=== PATIENT | male | born 1930 | race Caucasian/White ===

== ENCOUNTER → 2016-11-08 | Outpatient (CLI) | payer MEDICARE ==
[~2016-11-08] MED LIST: ALPHA LIPOIC A600 MG PO; ASPI-COR81 M1 PO; BUTRANS5 MCG/HR TD; CLARITIN10 MG PO; CO ENZYME Q-1050 MG PO; CRESTOR10 M1 PO; CRESTOR10 MG PO; DOXAZOSIN4 MG PO; DOXYCYCLINE MO100 M1 PO; FIBERCON625 MG PO; FOLIC ACID1 MG PO; GABAPENTIN TAB600 MG PO; GLUCOSAMINE & C1 CA2 PO; IMDUR30 MG PO; LEVOFLOXACIN500 MG PO; LOPRESSOR25 MG PO; LYRICA50 M1 PO; MEDROL DOSEPAK4 MG PO; METOPROLOL SUCC25 M2 PO; MULTIPLE VITAMI1 CAP PO; NATURE'S BLEND F1 MG PO; NEURONTIN300 MG PO; OMEGA 31000 MG PO; OMEPRAZOLE20 MG PO; PLAVIX75 MG PO; PROTONIX TR40 M1 PO; SAW PALMETTO160 M1 PO; VICODIN 500 MG-1 TAB PO; VITAMIN B COMPL1 CAP PO; VITAMIN C1000 MG PO; VITAMIN D5000 I3 PO; ZANTAC 300300 MG PO; ZITHROMAX Z PA250 MG PO; [UNRECOGNIZED DRUG - CODE] PO
== END | disposition home or self-care (01) ==
LOC: NM 10:00
DX: M79.2 Neuralgia and neuritis, unspecified (principal); M54.5 Low back pain; M25.551 Pain in right hip

== ENCOUNTER 2017-03-30 10:48 | Emergency (ER) | payer MEDICARE ==
[~2017-03-30] VITALS: Ht 177.8 cm; Wt 88.9 kg
[2017-03-30 11:01] VITALS: BP 122/70
[2017-03-30] MEDS ORDERED: NORCO 10-325 T1 EACH PO (13:11)
== END 2017-03-30 13:49 | disposition home or self-care (01) ==
LOC: ED 10:48
DX: S22.32XA Fracture of one rib, left side, initial encounter for closed fracture (principal); I25.10 Atherosclerotic heart disease of native coronary artery without angina pectoris; Z79.82 Long term (current) use of aspirin; Z79.899 Other long term (current) drug therapy; W55.22XA Struck by cow, initial encounter; Y93.89 Activity, other specified; Y92.89 Other specified places as the place of occurrence of the external cause; Y99.8 Other external cause status

== ENCOUNTER 2017-04-01 21:53 | Emergency (ER) | payer MEDICARE ==
[~2017-04-01] VITALS: Ht 177.8 cm; Wt 88.9 kg
[~2017-04-01 21:53] MED LIST changes: +NORCO 10-325 T1 EACH PO
[2017-04-01 21:57] VITALS: BP 146/68
[2017-04-01] MEDS ORDERED: LEVOFLOXACIN500 MG PO (23:39)
== END 2017-04-02 00:25 | disposition home or self-care (01) ==
LOC: ED 21:53
DX: J90 Pleural effusion, not elsewhere classified (principal); K59.00 Constipation, unspecified; I25.10 Atherosclerotic heart disease of native coronary artery without angina pectoris; Z79.899 Other long term (current) drug therapy; Z79.82 Long term (current) use of aspirin

== ENCOUNTER 2017-04-22 10:36 | Inpatient (IN) | payer MEDICARE ==
[2017-04-22] VITALS (8 sets, daily range): BP systolic 125–146; BP diastolic 62–69
[~2017-04-22] VITALS: Ht 177.8 cm; Wt 85.9 kg
[~2017-04-22 10:36] MED LIST changes: -VITAMIN D5000 I3 PO; +VITAMIN D5000 UNIT PO
[2017-04-22 10:50] LABS: BASO # 0.1 10*3/uL (0.0-0.1); BASO % 1.1 % (0.0-1.0); EOS # 0.2 10*3/uL (0.0-0.4); EOS % 3.6 % (1.0-4.0); HEMATOCRIT 34.2 % (42.0-52.0); HEMOGLOBIN 11.2 g/dl (14.0-18.0); MEAN CELL VOLUME 103.3 fl (80.0-94.0); MEAN CORPUSCULAR HGB 33.8 pg (27.0-31.0); MEAN CORPUSCULAR HGB CONC 32.7 g/dl (33.0-37.0); MONO # 0.4 10*3/uL (0.1-1.0); MONO % 8.9 % (3.0-9.0); PLATELET COUNT AUTOMATED 187 10*3/uL (130-400); RED BLOOD COUNT 3.31 10*6/uL (4.50-5.90); RED CELL DISTRI WIDTH 13.5 % (0-14.5); WHITE BLOOD COUNT 4.7 10*3/uL (4.8-10.8)
--- NOTE | 2017-04-22 11:00 | NUR ---
PATIENT DOES HAVE A SIGNIFICANT CARDIAC HX INCLUDING BYPASS. MELCHOR ROSS
[2017-04-22 11:08] LABS: ALKALINE PHOSPHATASE 123 U/L (45-117); BUN 22 mg/dl (7-24); CHLORIDE 110 mmol/L (98-107); CREATININE 1.26 mg/dL (0.70-1.30); MAGNESIUM 2.1 mg/dL (1.5-2.1); SGOT/AST 17 IU/L (3-35); SGPT/ALT 20 U/L (12-78); SODIUM 141 mmol/L (136-145); TOTAL PROTEIN 7.4 gm/dL (6.4-8.2)
--- NOTE | 2017-04-22 11:09 | NUR ---
DR. LUCIA MADE AWARE OF THE PATIENT'S ELEVATED TROPONIN. MELCHOR ROSS
[2017-04-22 11:10] LABS: TROPONIN I 0.096 ng/ml (<0.045)
--- NOTE | 2017-04-22 11:17 | NUR ---
PATIENT DENIES ANY SHORTNESS OF BREATH, STATES THAT HE WAS SHORT OF BREATH EARLIER, STATES THAT HE ALSO HAS HAD RELIEF OF THE CHEST PRESSURE THAT WAS MIDSTERNAL AT THIS TIME, PATIENT IS RESTING IN BED, DR. LUCIA PRESENT IN THE ROOM WITH THE PATIENT, CONTINUING TO MONITOR THE PATIENT. MELCHOR ROSS
[2017-04-22 11:27] LABS: ACT PARTIAL THROMBO TIME 27.1 SECONDS (20.8-31.5); INTERNATIONAL NORM RATIO 1.1 (2.0-3.5)
--- NOTE | 2017-04-22 11:35 | NUR ---
PATIENT STATES THAT HE CONTINUES TO HAVE PAIN IN THE LEFT RIBS FROM HIS INJURY 3 WEEKS AGO. MELCHOR ROSS
--- NOTE | 2017-04-22 12:05 | NUR ---
PATIENT IS ALERT AND ORIENTED X3, SKIN IS PINK, WARM, AND DRY, REPSIRATIONS ARE EASY AND NONLABORED, PATIENT STATES THAT HE DOES HAVE MILD PAIN IN THE LEFT SIDE, CALL LIGHT IN REACH OF THE PATIENT, CONTINUING TO MONITOR THE PATIENT. VANDANARN
--- NOTE | 2017-04-22 12:07 | NUR ---
PATIENT STATES THAT IT IS HIS RIBS THAT ARE HURTING DENIES ANY CHEST PAIN. MELCHOR ROSS
--- NOTE | 2017-04-22 13:13 | NUR ---
PATIENT TAKEN TO THE FLOOR AND PALCED IN ROOM 416-1 IN THE BED, CARE TRANSFERRED TO REGISTERED NURSE NATTY SCHWARTZ. MELCHOR ROSS
[2017-04-22] MEDS ORDERED: TOPAMAX100 M1 PO (13:34)
--- NOTE | 2017-04-22 13:45 | NUR ---
A 86, admitted to 5E, under the services of NADER Pacheco DO with a diagnosis of CHEST PAIN. Chief complaint is CHEST PAIN. Patient arrived via ambulatory from ER. Monitor applied. Initial assessment completed. Vital signs taken and recorded. NADER PACHECO DO notified of admission to the unit. Orders received. See assessment for past medical history, medications and allergies. Patient and/or family oriented to unit. [facility] visitation policy reviewed. Clothing/patient valuable form completed. NATTY SCHWARTZ
--- NOTE | 2017-04-22 20:19 | NUR ---
DR. DE SOUZA & DR. DELEON CONTACTED WITH TROPONIN LEVEL AND PATIENT C/O OF PRESSURE IN THE MIDSTERNAL REGION. SEE NEW ORDERS.
--- NOTE | 2017-04-22 22:20 | NUR ---
NOTIFIED OF CRITICAL LAB VALUE. NO NEW ORDERS.
[2017-04-22 22:38] LABS: CKMB 1.2 ng/ml (0.5-3.6)
[2017-04-22 22:41] LABS: TROPONIN I 0.084 ng/ml (<0.045)
--- NOTE | 2017-04-22 22:48 | NUR ---
MORPHINE GIVEN FOR CHEST DISCOMFORT, WILL MONITOR.
--- NOTE | 2017-04-22 23:30 | NUR ---
MORPHINE EFFECTIVE PAIN HAS NO C/O CHEST PAIN.
[2017-04-23] VITALS: BP 130/52
--- NOTE | 2017-04-23 01:30 | NUR ---
NOTIFIED OF CRITICAL LAB VALUE. NO NEW ORDERS.
[2017-04-23 06:26] LABS: BASO # 0.1 10*3/uL (0.0-0.1); BASO % 1.3 % (0.0-1.0); EOS # 0.2 10*3/uL (0.0-0.4); EOS % 3.6 % (1.0-4.0); HEMATOCRIT 32.3 % (42.0-52.0); HEMOGLOBIN 10.7 g/dl (14.0-18.0); LYMPH # 1.7 10*3/uL (1.3-4.4); LYMPH % 35.4 % (27.0-41.0); MEAN CELL VOLUME 102.5 fl (80.0-94.0); MEAN CORPUSCULAR HGB CONC 33.1 g/dl (33.0-37.0); MEAN PLATELET VOLUME 10.1 fl (9.6-12.3); MONO # 0.5 10*3/uL (0.1-1.0); MONO % 9.9 % (3.0-9.0); NEUT # 2.4 10*3/uL (2.3-7.9); NEUT % 49.6 % (47.0-73.0); PLATELET COUNT AUTOMATED 181 10*3/uL (130-400); RED BLOOD COUNT 3.15 10*6/uL (4.50-5.90); RED CELL DISTRI WIDTH 13.6 % (0-14.5); WHITE BLOOD COUNT 4.8 10*3/uL (4.8-10.8)
[2017-04-23 06:53] LABS: ALBUMIN 3.5 gm/dl (3.1-4.5); ALKALINE PHOSPHATASE 107 U/L (45-117); BUN 21 mg/dl (7-24); CHLORIDE 111 mmol/L (98-107); CHOLESTEROL 118 mg/dL (<200); CREATININE 1.13 mg/dL (0.70-1.30); MAGNESIUM 2.1 mg/dL (1.5-2.1); SGOT/AST 14 IU/L (3-35); SGPT/ALT 16 U/L (12-78); SODIUM 142 mmol/L (136-145); TOTAL PROTEIN 6.5 gm/dL (6.4-8.2); TRIGLYCERIDES 150 mg/dl (<150); VLDL CHOLESTEROL 30 mg/dL (6-40)
--- NOTE | 2017-04-23 06:56 | NUR ---
MORPINE GIVEN FOR SHARP CHEST PAIN. OXYGEN APPLIED. WILL MONITOR.
[2017-04-23 06:58] LABS: FREE T4 1.02 ng/dl (0.76-1.46); HDL CHOLESTEROL 32 mg/dl (40-60); LDL CHOLESTEROL 56 mg/dL (9-159)
--- NOTE | 2017-04-23 07:15 | NUR ---
CHEST PAIN RESOLVED, MORPHINE EFFECTIVE PATIENT SATISFIED.
[2017-04-23 08:00] VITALS: BP 119/62
[2017-04-23 08:06] LABS: VITAMIN D, 25-HYDROXY 48.5 ng/mL (30-100)
--- NOTE | 2017-04-23 11:52 | NUR ---
DR SCHWARTZ HERE TO SEE PT
[2017-04-23 12:00] VITALS: BP 122/72
--- NOTE | 2017-04-23 14:42 | NUR ---
REPORT CALLED TO [place] , SPOKE WITH MIN
--- NOTE | 2017-04-23 14:44 | NUR ---
DR SCHWARTZ NOTIFIED OF PT AND PT REFUSING LOVENOX
--- NOTE | 2017-04-23 15:53 | NUR ---
Discharge instructions reviewed with patient/family. Patient receptive and verbalizes understanding. Follow-up care arranged. Written instructions given to patient/family. GAMALIEL KINNEY
== END 2017-04-23 15:53 | disposition short-term general hospital (02) | DRG 303 ==
LOC: ED 10:36 → 5E 11:58 → EDHOLD 11:58 → 5E 12:17
PROVIDERS: Emergency Medicine; Family Medicine; Internal Medicine Cardiovascular Disease; ADMIT Internal Medicine
DX: I25.709 Atherosclerosis of coronary artery bypass graft(s), unspecified, with unspecified angina pectoris (principal); D53.9 Nutritional anemia, unspecified; I10 Essential (primary) hypertension; R74.8 Abnormal levels of other serum enzymes; E78.5 Hyperlipidemia, unspecified; I25.2 Old myocardial infarction; Z87.891 Personal history of nicotine dependence; Z95.5 Presence of coronary angioplasty implant and graft; Z82.49 Family history of ischemic heart disease and other diseases of the circulatory system; Z90.49 Acquired absence of other specified parts of digestive tract; Z79.82 Long term (current) use of aspirin; Z79.899 Other long term (current) drug therapy; Z80.8 Family history of malignant neoplasm of other organs or systems; S22.42XD Multiple fractures of ribs, left side, subsequent encounter for fracture with routine healing; X58.XXXD Exposure to other specified factors, subsequent encounter

== ENCOUNTER 2017-05-31 19:57 | Inpatient (IN) | payer MEDICARE ==
[~2017-05-31] VITALS: Ht 177.8 cm; Wt 88.3 kg
[~2017-05-31 19:57] MED LIST changes: +TOPAMAX100 M1 PO
[2017-05-31 20:13] VITALS: BP 125/84
[2017-05-31 20:47] LABS: BASO # 0.1 10*3/uL (0.0-0.1); BASO % 1.8 % (0.0-1.0); EOS # 0.2 10*3/uL (0.0-0.4); EOS % 2.8 % (1.0-4.0); HEMATOCRIT 34.4 % (42.0-52.0); HEMOGLOBIN 11.8 g/dl (14.0-18.0); LYMPH # 1.6 10*3/uL (1.3-4.4); LYMPH % 28.5 % (27.0-41.0); MEAN CELL VOLUME 99.4 fl (80.0-94.0); MEAN CORPUSCULAR HGB 34.1 pg (27.0-31.0); MEAN CORPUSCULAR HGB CONC 34.3 g/dl (33.0-37.0); MEAN PLATELET VOLUME 9.5 fl (9.6-12.3); MONO # 0.5 10*3/uL (0.1-1.0); NEUT # 3.3 10*3/uL (2.3-7.9); NEUT % 57.5 % (47.0-73.0); PLATELET COUNT AUTOMATED 189 10*3/uL (130-400); RED BLOOD COUNT 3.46 10*6/uL (4.50-5.90); RED CELL DISTRI WIDTH 13.4 % (0-14.5); WHITE BLOOD COUNT 5.7 10*3/uL (4.8-10.8)
[2017-05-31 20:56] LABS: INTERNATIONAL NORM RATIO 1.1 (2.0-3.5)
[2017-05-31 21:02] LABS: ALBUMIN 3.9 gm/dl (3.1-4.5); ALKALINE PHOSPHATASE 94 U/L (45-117); BUN 16 mg/dl (7-24); CHLORIDE 108 mmol/L (98-107); CREATININE 1.25 mg/dL (0.70-1.30); POTASSIUM 3.5 mmol/L (3.5-5.1); SGOT/AST 9 IU/L (3-35); SGPT/ALT 20 U/L (12-78); SODIUM 140 mmol/L (136-145); TOTAL PROTEIN 7.2 gm/dL (6.4-8.2)
[2017-05-31 22:12] LABS: TROPONIN I 0.154 ng/ml (<0.045)
--- NOTE | 2017-05-31 22:12 | NUR ---
LAB CALLED WITH CRITICAL VALUE OF TROPONIN 0.154. NOTIFIED.
[2017-05-31 22:52] VITALS: BP 111/66
[2017-05-31 23:22] VITALS: BP 137/69
--- NOTE | 2017-06-01 00:11 | NUR ---
DR. DHALIWAL CALLED AT THIS TIME, THIS NURSE STATED THAT DR. Royal MCWILLIAMS PUT IN AN ORDER FOR A CT BRAIN ATTACK. AND THAT THIS ORDER IS SUPPOSED TO BE PAGED OVERHEAD. THIS NURSE REQUESTED THAT THE ORDER BE SWITCHED TO CT HEAD STAT INSTEAD OF BRAIN ATTACK SINCE THE PATIENT HAD FALLEN. DR. DHALIWAL STATED HE WOULD GET THIS ORDER CHANGED.
--- NOTE | 2017-06-01 00:19 | NUR ---
DR. DHALIWAL CALLED BACK AT THIS TIME AND THIS NURSE STATED NOT TO CANCEL THE CT BRAIN ATTACK ORDER BECAUSE THE CONVEYOR WEIGHER OPERATOR ALREADY TOOK THE SCAN. DR. DHALIWAL STATED THAT DR. MCWILLIAMS JUST SWITCHED IT, BUT IT WAS PUT IN SO THAT IT WOULD GET DONE FASTER.
--- NOTE | 2017-06-01 01:09 | NUR ---
A 86, admitted to 4E, under the services of JOSE LUIS Tyson DO with a diagnosis of FRACTURED RIB. Chief complaint is RIB PAIN. Patient arrived via wheel chair from ER. Monitor applied. Initial assessment completed. Vital signs taken and recorded. JOSE LUIS TYSON DO notified of admission to the unit. Orders received. See assessment for past medical history, medications and allergies. Patient and/or family oriented to unit. [facility] IN PATIENT visitation policy reviewed. Clothing/patient valuable form completed. ROSEMARIE REDDING
--- NOTE | 2017-06-01 01:10 | NUR ---
ATTEMPTED TO CONDUCT MED REC WITH PATIENT HOWEVER HE DOES NOT REMEMBER HIS MEDICATIONS AND DOSES. WILL PASS ON MED REC NEEDS TO BE COMPLETED WITH [facility] WHEN THEY OPEN.
--- NOTE | 2017-06-01 02:00 | NUR ---
DR. DHALIWAL NOTIFIED THAT OF TROPONIN LEVEL OF 0.155 AND THAT THE MEDICATIONS WER NOT ABLE TO BE REVIEWED WITH THE PATIENT. MEDICATIONS WERE CONTINUED BASED ON MED REC FROM RECENT ADMISSION.
[2017-06-01 04:24] LABS: BASO # 0.1 10*3/uL (0.0-0.1); BASO % 0.8 % (0.0-1.0); EOS # 0.2 10*3/uL (0.0-0.4); EOS % 3.2 % (1.0-4.0); HEMATOCRIT 34.5 % (42.0-52.0); HEMOGLOBIN 11.5 g/dl (14.0-18.0); LYMPH # 1.6 10*3/uL (1.3-4.4); LYMPH % 26.5 % (27.0-41.0); MEAN CELL VOLUME 100.6 fl (80.0-94.0); MEAN CORPUSCULAR HGB 33.5 pg (27.0-31.0); MEAN CORPUSCULAR HGB CONC 33.3 g/dl (33.0-37.0); MEAN PLATELET VOLUME 9.4 fl (9.6-12.3); MONO # 0.5 10*3/uL (0.1-1.0); MONO % 8.8 % (3.0-9.0); NEUT # 3.6 10*3/uL (2.3-7.9); NEUT % 60.5 % (47.0-73.0); PLATELET COUNT AUTOMATED 181 10*3/uL (130-400); RED BLOOD COUNT 3.43 10*6/uL (4.50-5.90); RED CELL DISTRI WIDTH 13.5 % (0-14.5)
[2017-06-01 04:34] LABS: BUN 17 mg/dl (7-24); CHLORIDE 108 mmol/L (98-107); CREATININE 1.24 mg/dL (0.70-1.30); POTASSIUM 3.7 mmol/L (3.5-5.1); SODIUM 142 mmol/L (136-145)
[2017-06-01 04:35] LABS: PHOSPHOROUS 3.2 mg/dL (2.5-4.9)
--- NOTE | 2017-06-01 04:46 | NUR ---
Dr. julian notified for troponin of 0.166.
--- NOTE | 2017-06-01 04:58 | NUR ---
SPOKE WITH DR. MCWILLIAMS AT THIS TIME. DR. MCWILLIAMS INQUIRING ABOUT IF PATIENT FOLLOWS WITH CARDIOLOGY. THIS NURSE STATED THAT THE PATIENT FOLLOWS WITH [facility] AND THAT THE LAST TIME HE WAS HERE HE WAS TRANSFERRED FOR THE SAME ELEVATED TROPONINS THAT HE IS HAVING NOW. THIS NURSE STATED IN A PREVIOUS NOTE BY DR. SCHWARTZ THAT THE PATIENTS FAMILY REQUESTED IF ANY CARDIOLOY WORK UP WAS NEEDED THEY WOULD LIKE TO GO BACK TO [facility]. THE PATIENT IS AGREEABLE TO SEE A MODEL HOME SALES GREETER HERE AND IF NEEDED HE CAN BE TRANSFERRED TO [facility]
--- NOTE | 2017-06-01 05:03 | NUR ---
SPOKE WITH DR. DHALIWAL AT THIS TIME, THIS NURSE INQUIRED ABOUT IF WE COULD GET AN ORDER TO OBTAIN MEDICAL RECORDS FROM THE LAST TIME THE PATIENT WAS TRANSFERRED TO [facility] SO THE STUDIO ASSISTANT HERE COULD REVIEW. DR. DHALIWAL STATED THAT HE WOULD PUT THE ORDER IN
--- NOTE | 2017-06-01 06:39 | NUR ---
DR SEPULVEDA WAS CONSULTED REGARDING THE RISING TROPONIN LEVEL.
[2017-06-01 08:00] VITALS: BP 104/43
--- NOTE | 2017-06-01 08:45 | NUR ---
CRITICAL LAB REPORTED TO
--- NOTE | 2017-06-01 09:15 | NUR ---
case management attempted to visit with patient, patient having testing done at this time, will see at a later time
--- NOTE | 2017-06-01 10:14 | NUR ---
Nursing reports that patient to be transferred to [facility] this am. OT evaluation not appropriate at this time. Radhika Tipton OTR/L
[2017-06-01 12:00] VITALS: BP 118/63
--- NOTE | 2017-06-01 12:43 | NUR ---
PHYSICAL THERAPY Possible transfers, not medically appropiate for PT this date. Thank you for this referral. Rosa M Aldana,PT
[2017-06-01 16:00] VITALS: BP 114/56
--- NOTE | 2017-06-01 16:00 | NUR ---
PATIENT LYING IN BED ALERT AND ORIENTED. PATIENT STATES THAT HE IS WAITING FOR CONFIRMATION TO [place]. VOICES NO COMPLAINTS, WITH PATIENT. IV'S INTACT ONE IN EACH ARM. NO S/S OF DISTRESS.
--- NOTE | 2017-06-01 18:27 | NUR ---
Discharge instructions reviewed with patient/family. Patient receptive and verbalizes understanding. Follow-up care arranged. Written instructions given to patient/family. PATIENT DISCHARGE. 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 TRANSPORTED VIA [facility]. PATIENT ON MONITOR, PACED RHYTHM WITH RBBB. WITH PATIENT AND GOING IN PRIVATE CAR. HOSPITAL WING AND ROOM NUMBER GIVEN TO AMBULANCE STAFF AND . REPORT CALLED TO [facility]. OUT OF FACILITY AT 1755. ANKUR MDOI
== END 2017-06-01 18:27 | disposition short-term general hospital (02) | DRG 184 ==
LOC: ED 19:57 → 4E 22:57 → EDHOLD 22:57 → 4E 23:11
PROVIDERS: Internal Medicine; Nurse Practitioner Family; ADMIT Internal Medicine
DX: S22.42XA Multiple fractures of ribs, left side, initial encounter for closed fracture (principal); I67.82 Cerebral ischemia; E87.8 Other disorders of electrolyte and fluid balance, not elsewhere classified; G62.9 Polyneuropathy, unspecified; D53.9 Nutritional anemia, unspecified; R43.2 Parageusia; I25.10 Atherosclerotic heart disease of native coronary artery without angina pectoris; K21.9 Gastro-esophageal reflux disease without esophagitis; E78.5 Hyperlipidemia, unspecified; G43.909 Migraine, unspecified, not intractable, without status migrainosus; E55.9 Vitamin D deficiency, unspecified; N40.0 Benign prostatic hyperplasia without lower urinary tract symptoms; W18.39XA Other fall on same level, initial encounter; Z95.1 Presence of aortocoronary bypass graft; Z87.01 Personal history of pneumonia (recurrent); Z79.82 Long term (current) use of aspirin; Y93.89 Activity, other specified; Y92.89 Other specified places as the place of occurrence of the external cause; Z90.49 Acquired absence of other specified parts of digestive tract; Z82.49 Family history of ischemic heart disease and other diseases of the circulatory system; Z82.0 Family history of epilepsy and other diseases of the nervous system; Y99.8 Other external cause status; I25.2 Old myocardial infarction

== ENCOUNTER 2018-09-21 12:55 | Emergency (ER) | payer MEDICARE ==
[~2018-09-21] VITALS: Ht 177.8 cm; Wt 89.4 kg
--- NOTE | ~2018-09-21 | EKG ---
[place], [place] ELECTROCARDIOGRAM REPORT NAME: JADON WILSON UNIT #: [id number] ROOM: DOCTOR: EPIPHANY DRAFT REPORT BIRTHDATE: [birth year] [facility] Test Date: 2018-09-21 Test Time: 13:37:52 Pat Name: JADON WILSON Department: Room: Gender: Manager Transfer: PAMELA : [id number] Requested By: DEVAN MARTIN Order Number: [id number] Reading MD: Tommy Flores MD Measurements Intervals [place] Rate: 73 P: MS: 73 QRS: 133 QRSD: 118 T: -7 QT: 416 QTc: 459 Interpretive Statements Atrial-paced complexes Nonspecific intraventricular conduction delay Borderline low voltage, extremity leads Baseline wander in lead(s) V1 Compared to ECG 09/18/2018 10:23:42 ST (T wave) deviation no longer present Electronically Signed On 09-23-2018 7:34:15 PST by Tommy Flores MD CM:EKGRPT:ELECTROCARDIOGRAM REPORT [id number] DEVAN ALEXANDRA DRAFT REPORT DEVAN MARTIN MD
[~2018-09-21 12:55] MED LIST changes: +ELIQUIS5 M1 PO; +SOTALOL80 MG PO
[2018-09-21 13:02] VITALS: BP 137/67
[2018-09-21 13:34] LABS: BASO % 1.1 % (0.0-1.0); EOS # 0.1 10*3/uL (0.0-0.4); HEMATOCRIT 37.4 % (42.0-52.0); HEMOGLOBIN 12.5 g/dl (14.0-18.0); LYMPH % 26.1 % (27.0-41.0); MEAN CELL VOLUME 101.4 fl (80.0-94.0); MEAN CORPUSCULAR HGB 33.9 pg (27.0-31.0); MEAN CORPUSCULAR HGB CONC 33.4 g/dl (33.0-37.0); MEAN PLATELET VOLUME 9.1 fl (9.6-12.3); MONO # 0.7 10*3/uL (0.1-1.0); MONO % 18.4 % (3.0-9.0); NEUT # 1.9 10*3/uL (2.3-7.9); NEUT % 51.1 % (47.0-73.0); PLATELET COUNT AUTOMATED 157 10*3/uL (130-400); RED BLOOD COUNT 3.69 10*6/uL (4.50-5.90); RED CELL DISTRI WIDTH 13.5 % (0-14.5); WHITE BLOOD COUNT 3.6 10*3/uL (4.8-10.8)
[2018-09-21 13:43] LABS: ACT PARTIAL THROMBO TIME 26.5 SECONDS (20.8-31.5); INTERNATIONAL NORM RATIO 1.1 (2.0-3.5)
[2018-09-21 13:44] LABS: BILIRUBIN NEGATIVE (NEGATIVE); BLOOD NEGATIVE (NEGATIVE); CLARITY SL CLOUDY (CLEAR); COLOR YELLOW (YELLOW); GLUCOSE NEGATIVE (NEGATIVE); KETONE TRACE (NEGATIVE); LEUKO ESTERASE NEGATIVE (NEGATIVE); NITRITE NEGATIVE (NEGATIVE); PH 5.5 (5.0-9.0); SPECIFIC GRAVITY 1.015 (1.005-1.030); UROBILINOGEN 0.2 E.U./dl (0.2-1.0)
[2018-09-21 13:57] LABS: BACTERIA 1+; RBC 16-20 rbc/hpf (0-2)
[2018-09-21 14:01] LABS: ALBUMIN 4.4 gm/dl (3.1-4.5); ALKALINE PHOSPHATASE 72 U/L (45-117); BUN 17 mg/dl (7-24); CHLORIDE 103 mmol/L (98-107); CREATININE 1.16 mg/dL (0.70-1.30); LIPASE 130 U/L (73-393); SGOT/AST 27 IU/L (3-35); SGPT/ALT 36 U/L (12-78); SODIUM 138 mmol/L (136-145); TOTAL PROTEIN 7.3 gm/dL (6.4-8.2)
[2018-09-21 14:05] LABS: TROPONIN I 0.223 ng/ml (<0.045)
== END 2018-09-21 16:19 | disposition home or self-care (01) ==
LOC: ED 12:55
PROVIDERS: Emergency Medicine
DX: R10.9 Unspecified abdominal pain (principal); R79.89 Other specified abnormal findings of blood chemistry; R14.0 Abdominal distension (gaseous); R19.7 Diarrhea, unspecified; I25.10 Atherosclerotic heart disease of native coronary artery without angina pectoris; I11.0 Hypertensive heart disease with heart failure; I50.9 Heart failure, unspecified; E78.5 Hyperlipidemia, unspecified; K21.9 Gastro-esophageal reflux disease without esophagitis; I25.2 Old myocardial infarction; G43.909 Migraine, unspecified, not intractable, without status migrainosus; I48.0 Paroxysmal atrial fibrillation; G62.9 Polyneuropathy, unspecified; Z90.49 Acquired absence of other specified parts of digestive tract

== ENCOUNTER 2019-04-17 13:35 | Emergency (ER) | payer MEDICARE ==
--- NOTE | ~2019-04-17 | EKG ---
[place], [place] ELECTROCARDIOGRAM REPORT NAME: MILLI WILSON UNIT #: [id number] ROOM: DOCTOR: NASRIN DRAFT REPORT BIRTHDATE: [birth year] [facility] Test Date: 2019-04-17 Test Time: 13:41:59 Pat Name: milli wilson Department: Patient ID: ELOH- Room: Gender: Cushion Padder: : 1930 Requested By: ROSELYN LUCIA Order Number: [id number] Reading MD: Measurements Intervals [place] Rate: 75 P: VA: 117 QRS: 140 QRSD: 125 T: 20 QT: 428 QTc: 479 Interpretive Statements Atrial-paced complexes Nonspecific intraventricular conduction delay Baseline wander in lead(s) III,aVF No previous ECG available for comparison CM:EKGRPT:ELECTROCARDIOGRAM REPORT 1341 1045 ROSELYN ALEXANDRA DRAFT REPORT ROSELYN LUCIA M.D.
--- NOTE | ~2019-04-17 | EKG ---
[place], [place] ELECTROCARDIOGRAM REPORT NAME: JADON WILSON UNIT #: [id number] ROOM: DOCTOR: EPIPHANY DRAFT REPORT BIRTHDATE: [birth year] [facility] Test Date: 2019-04-17 Test Time: 13:41:59 Pat Name: JADON WILSON Department: Room: Gender: Jet Handler: : 1930 Requested By: ROSELYN LUCIA Order Number: [id number] Reading MD: Mey Goetz Measurements Intervals [place] Rate: 75 P: AR: 117 QRS: 140 QRSD: 125 T: 20 QT: 428 QTc: 479 Interpretive Statements Atrial-paced complexes Nonspecific intraventricular conduction delay Baseline wander in lead(s) III,aVF Compared to ECG 09/21/2018 13:37:52 No significant changes Electronically Signed On 04-18-2019 12:12:18 PDT by Mey Goetz CM:EKGRPT:ELECTROCARDIOGRAM REPORT 1341 1212 ROSELYN ALEXANDRA DRAFT REPORT ROSELYN LUCIA M.D.
[2019-04-17 14:14] LABS: BASO # 0.1 10*3/uL (0.0-0.1); BASO % 1.9 % (0.0-1.0); EOS # 0.2 10*3/uL (0.0-0.4); EOS % 5.7 % (1.0-4.0); HEMATOCRIT 35.1 % (42.0-52.0); HEMOGLOBIN 11.8 g/dl (14.0-18.0); LYMPH # 1.3 10*3/uL (1.3-4.4); LYMPH % 31.5 % (27.0-41.0); MEAN CELL VOLUME 102.3 fl (80.0-94.0); MEAN CORPUSCULAR HGB 34.4 pg (27.0-31.0); MEAN CORPUSCULAR HGB CONC 33.6 g/dl (33.0-37.0); MEAN PLATELET VOLUME 9.7 fl (9.6-12.3); MONO # 0.5 10*3/uL (0.1-1.0); MONO % 11.1 % (3.0-9.0); NEUT # 2.1 10*3/uL (2.3-7.9); NEUT % 49.8 % (47.0-73.0); PLATELET COUNT AUTOMATED 172 10*3/uL (130-400); RED BLOOD COUNT 3.43 10*6/uL (4.50-5.90); RED CELL DISTRI WIDTH 13.2 % (0-14.5); WHITE BLOOD COUNT 4.2 10*3/uL (4.8-10.8)
[2019-04-17 14:28] LABS: ACT PARTIAL THROMBO TIME 29.1 SECONDS (20.0-32.1)
[2019-04-17 14:53] LABS: ALBUMIN 4.4 gm/dl (3.1-4.5); ALKALINE PHOSPHATASE 58 U/L (45-117); BUN 14 mg/dl (7-24); CHLORIDE 106 mmol/L (98-107); CREATININE 1.12 mg/dL (0.70-1.30); POTASSIUM 3.9 mmol/L (3.5-5.1); SGOT/AST 9 IU/L (3-35); SGPT/ALT 18 U/L (12-78); SODIUM 139 mmol/L (136-145); TOTAL PROTEIN 6.9 gm/dL (6.4-8.2)
[2019-04-17 14:59] LABS: TROPONIN I 0.134 ng/ml (<0.045)
[2019-04-17 17:15] VITALS: BP 131/82
== END 2019-04-17 17:39 | disposition short-term general hospital (02) ==
LOC: ED
PROVIDERS: Emergency Medicine
DX: I21.4 Non-ST elevation (NSTEMI) myocardial infarction (principal); I25.10 Atherosclerotic heart disease of native coronary artery without angina pectoris; I50.9 Heart failure, unspecified; K21.9 Gastro-esophageal reflux disease without esophagitis; G43.909 Migraine, unspecified, not intractable, without status migrainosus; I48.0 Paroxysmal atrial fibrillation; I25.2 Old myocardial infarction; Z79.899 Other long term (current) drug therapy; Z79.82 Long term (current) use of aspirin; Z95.1 Presence of aortocoronary bypass graft

== ENCOUNTER 2019-04-25 13:04 | Inpatient (IN) | payer MEDICARE ==
[~2019-04-25] VITALS: Ht 177.8 cm; Wt 89.6 kg
[2019-04-25 13:35] VITALS: BP 117/65
[2019-04-25 13:39] LABS: BASO # 0.1 10*3/uL (0.0-0.1); BASO % 1.7 % (0.0-1.0); EOS # 0.2 10*3/uL (0.0-0.4); EOS % 3.9 % (1.0-4.0); HEMATOCRIT 35.8 % (42.0-52.0); HEMOGLOBIN 12.2 g/dl (14.0-18.0); LYMPH % 21.8 % (27.0-41.0); MEAN CELL VOLUME 101.1 fl (80.0-94.0); MEAN CORPUSCULAR HGB 34.5 pg (27.0-31.0); MEAN CORPUSCULAR HGB CONC 34.1 g/dl (33.0-37.0); MEAN PLATELET VOLUME 9.9 fl (9.6-12.3); MONO # 0.6 10*3/uL (0.1-1.0); MONO % 11.8 % (3.0-9.0); NEUT # 2.8 10*3/uL (2.3-7.9); NEUT % 60.6 % (47.0-73.0); PLATELET COUNT AUTOMATED 179 10*3/uL (130-400); RED BLOOD COUNT 3.54 10*6/uL (4.50-5.90); RED CELL DISTRI WIDTH 13.3 % (0-14.5); WHITE BLOOD COUNT 4.7 10*3/uL (4.8-10.8)
[2019-04-25 13:51] LABS: ACT PARTIAL THROMBO TIME 27.3 SECONDS (20.0-32.1)
[2019-04-25 13:57] LABS: ALBUMIN 4.9 gm/dl (3.1-4.5); ALKALINE PHOSPHATASE 47 U/L (45-117); BUN 16 mg/dl (7-24); CHLORIDE 105 mmol/L (98-107); CREATININE 1.16 mg/dL (0.70-1.30); POTASSIUM 4.1 mmol/L (3.5-5.1); SGOT/AST 15 IU/L (3-35); SGPT/ALT 21 U/L (12-78); SODIUM 138 mmol/L (136-145); TOTAL PROTEIN 7.1 gm/dL (6.4-8.2)
[2019-04-25 13:58] LABS: LIPASE 99 U/L (73-393)
--- NOTE | 2019-04-25 13:59 | NUR ---
LAB CONTACTS AND TROP IS 0.121. DOC MADE AWARE.
[2019-04-25 14:00] LABS: TROPONIN I 0.121 ng/ml (<0.045)
--- NOTE | 2019-04-25 14:12 | NUR ---
PT NOW HAS A BED UPSTAIRS. LYNETTE FROM [facility] IS IN THE ROOM AT THIS TIME AND HAS JUST STARTED DOING THE ECHO, PT IS UNABLE TO GO UPSTAIRS AT THIS TIME DUE TO THE TESTING.
[2019-04-25 14:50] VITALS: BP 121/70
--- NOTE | 2019-04-25 14:50 | NUR ---
PT IS RESTING IN BED. HE STATES THAT THE "FUNNY FEELING" IN HIS FACE HAS IMPROVED SOME. HIS VITAL SIGNS ARE STABLE. NO SIGNS OF ACUTE DISTRESS.
--- NOTE | 2019-04-25 16:03 | NUR ---
PT DID TAKE THE 162 OF ASA BUT REFUSED THE NITRO. HE STATES THAT HIS CHEST PAIN IS IMPROVED AND HE DOES NOT WANT TO TAKE IT BECAUSE HE DOES NOT WANT A HEADACHE. WILL CONTINUE TO MONITOR.
--- NOTE | 2019-04-25 16:53 | NUR ---
Time: 1654 A 88 year old MALE admitted to 5E under services of ANTELMO LYNCH DO. Pt. arrived via stretcher from ER. Chief complaint: CHEST PAIN. PATIENT AMBULATED INTO ROOM JAE RANDALL
[2019-04-25 17:01] VITALS: BP 135/71
[2019-04-25 17:05] VITALS: BP 135/71
[2019-04-25] MEDS ORDERED: IRON325 M1 PO (17:15)
--- NOTE | 2019-04-25 17:42 | NUR ---
MED REC UP TO DATE PER AND LIST. DR CHAPPELL CALLED AND NOTIFIED.
[2019-04-25 20:00] VITALS: BP 117/61
--- NOTE | 2019-04-25 20:16 | NUR ---
DR. COVARRUBIAS AWARE OF TROPONIN OF 0.116.
[2019-04-25 21:03] VITALS: BP 124/68
--- NOTE | 2019-04-25 22:00 | NUR ---
HS MEDICATIONS GIVEN AT THIS TIME. PT DENIES ANY COMPLAINTS AT THIS TIME. RESPIRATIONS EASY AND UNLABORED ON ROOM AIR. ALL NEEDS MET. BLOOD PRESSURE WITHIN NORMAL LIMITS. BED IN LOWEST POSITION, WHEELS LOCKED. WILL CONTINUE TO MONITOR. CALL LIGHT IN REACH.
[2019-04-26] VITALS: BP 112/61
[2019-04-26 06:19] LABS: BASO # 0.1 10*3/uL (0.0-0.1); BASO % 1.1 % (0.0-1.0); EOS # 0.2 10*3/uL (0.0-0.4); EOS % 3.6 % (1.0-4.0); HEMATOCRIT 35.8 % (42.0-52.0); LYMPH # 1.7 10*3/uL (1.3-4.4); LYMPH % 31.5 % (27.0-41.0); MEAN CELL VOLUME 102.3 fl (80.0-94.0); MEAN CORPUSCULAR HGB 34.3 pg (27.0-31.0); MEAN CORPUSCULAR HGB CONC 33.5 g/dl (33.0-37.0); MEAN PLATELET VOLUME 9.9 fl (9.6-12.3); MONO # 0.5 10*3/uL (0.1-1.0); MONO % 9.1 % (3.0-9.0); NEUT % 54.5 % (47.0-73.0); PLATELET COUNT AUTOMATED 178 10*3/uL (130-400); RED CELL DISTRI WIDTH 13.4 % (0-14.5); WHITE BLOOD COUNT 5.5 10*3/uL (4.8-10.8)
[2019-04-26 06:54] LABS: BUN 15 mg/dl (7-24); CHLORIDE 106 mmol/L (98-107); PHOSPHOROUS 3.3 mg/dL (2.5-4.9); POTASSIUM 3.8 mmol/L (3.5-5.1); SODIUM 140 mmol/L (136-145); TRIGLYCERIDES 203 mg/dl (<150); VLDL CHOLESTEROL 41 mg/dL (6-40)
[2019-04-26 07:00] LABS: ACT PARTIAL THROMBO TIME 27.1 SECONDS (20.0-32.1)
[2019-04-26 07:01] LABS: CHOLESTEROL 107 mg/dL (<200); FREE T4 0.86 ng/dl (0.76-1.46); HDL CHOLESTEROL 26 mg/dl (40-60); LDL CHOLESTEROL 40 mg/dL (9-159)
[2019-04-26 07:32] LABS: VITAMIN D, 25-HYDROXY 39.1 ng/mL (30-100)
[2019-04-26 08:00] VITALS: BP 118/76
--- NOTE | 2019-04-26 09:12 | NUR ---
PT RESTING IN BED/ NO DISTRESS NOTED. WILL MONITOR
--- NOTE | 2019-04-26 11:57 | NUR ---
Discharge instructions reviewed with patient/family. Patient receptive and verbalizes understanding. Follow-up care arranged. Written instructions given to patient/family. GAMALIEL KINNEY
== END 2019-04-26 11:57 | disposition home or self-care (01) | DRG 281 ==
LOC: ED 13:04 → EDHOLD 15:51 → 5E 15:51
PROVIDERS: Emergency Medicine; Internal Medicine; ADMIT Internal Medicine
DX: I21.9 Acute myocardial infarction, unspecified (principal); G61.0 Guillain-Barre syndrome; R20.0 Anesthesia of skin; D53.9 Nutritional anemia, unspecified; D72.810 Lymphocytopenia; I25.708 Atherosclerosis of coronary artery bypass graft(s), unspecified, with other forms of angina pectoris; G43.909 Migraine, unspecified, not intractable, without status migrainosus; G62.9 Polyneuropathy, unspecified; E78.5 Hyperlipidemia, unspecified; K21.9 Gastro-esophageal reflux disease without esophagitis; N40.0 Benign prostatic hyperplasia without lower urinary tract symptoms; I50.9 Heart failure, unspecified; I48.0 Paroxysmal atrial fibrillation; I25.2 Old myocardial infarction; Z95.5 Presence of coronary angioplasty implant and graft; Z90.49 Acquired absence of other specified parts of digestive tract; Z95.1 Presence of aortocoronary bypass graft; Z80.8 Family history of malignant neoplasm of other organs or systems; Z79.899 Other long term (current) drug therapy; Z79.02 Long term (current) use of antithrombotics/antiplatelets

== ENCOUNTER 2019-05-17 12:31 | Emergency (ER) | payer MEDICARE ==
[~2019-05-17] VITALS: Ht 175.2 cm; Wt 92.5 kg
[~2019-05-17 12:31] MED LIST changes: +IRON325 M1 PO
[2019-05-17 12:51] LABS: BASO # 0.1 10*3/uL (0.0-0.1); BASO % 1.9 % (0.0-1.0); EOS # 0.2 10*3/uL (0.0-0.4); EOS % 4.3 % (1.0-4.0); HEMATOCRIT 35.8 % (42.0-52.0); HEMOGLOBIN 12.1 g/dl (14.0-18.0); LYMPH % 21.6 % (27.0-41.0); MEAN CELL VOLUME 103.5 fl (80.0-94.0); MEAN CORPUSCULAR HGB CONC 33.8 g/dl (33.0-37.0); MEAN PLATELET VOLUME 9.9 fl (9.6-12.3); MONO # 0.6 10*3/uL (0.1-1.0); MONO % 12.5 % (3.0-9.0); NEUT # 2.8 10*3/uL (2.3-7.9); NEUT % 59.7 % (47.0-73.0); PLATELET COUNT AUTOMATED 196 10*3/uL (130-400); RED BLOOD COUNT 3.46 10*6/uL (4.50-5.90); RED CELL DISTRI WIDTH 13.1 % (0-14.5); WHITE BLOOD COUNT 4.6 10*3/uL (4.8-10.8)
[2019-05-17 13:03] LABS: ACT PARTIAL THROMBO TIME 26.8 SECONDS (20.0-32.1)
[2019-05-17 13:08] LABS: ALBUMIN 4.2 gm/dl (3.1-4.5); ALKALINE PHOSPHATASE 59 U/L (45-117); BUN 17 mg/dl (7-24); CHLORIDE 105 mmol/L (98-107); CREATININE 1.24 mg/dL (0.70-1.30); POTASSIUM 3.9 mmol/L (3.5-5.1); SGOT/AST 20 IU/L (3-35); SGPT/ALT 23 U/L (12-78); SODIUM 138 mmol/L (136-145)
[2019-05-17 14:34] VITALS: BP 153/81
== END 2019-05-17 17:03 | disposition short-term general hospital (02) ==
LOC: ED 12:31
PROVIDERS: Emergency Medicine
DX: I21.4 Non-ST elevation (NSTEMI) myocardial infarction (principal); I25.10 Atherosclerotic heart disease of native coronary artery without angina pectoris; I11.0 Hypertensive heart disease with heart failure; I50.9 Heart failure, unspecified; E78.5 Hyperlipidemia, unspecified; K21.9 Gastro-esophageal reflux disease without esophagitis; I25.2 Old myocardial infarction; G43.909 Migraine, unspecified, not intractable, without status migrainosus; Z90.49 Acquired absence of other specified parts of digestive tract; Z98.890 Other specified postprocedural states; Z79.899 Other long term (current) drug therapy; Z95.1 Presence of aortocoronary bypass graft; Z79.82 Long term (current) use of aspirin; Z95.0 Presence of cardiac pacemaker

== ENCOUNTER → 2020-06-03 | Outpatient (CLI) | payer MEDICARE ==
[2020-06-03 11:11] LABS: BASO # 0.1 10*3/uL (0.0-0.1); BASO % 0.9 % (0.0-1.0); EOS # 0.2 10*3/uL (0.0-0.4); EOS % 3.8 % (1.0-4.0); HEMATOCRIT 37.1 % (42.0-52.0); LYMPH # 1.1 10*3/uL (1.3-4.4); LYMPH % 20.7 % (27.0-41.0); MEAN CELL VOLUME 102.8 fl (80.0-94.0); MEAN CORPUSCULAR HGB 33.8 pg (27.0-31.0); MEAN CORPUSCULAR HGB CONC 32.9 g/dl (33.0-37.0); MEAN PLATELET VOLUME 9.7 fl (9.6-12.3); MONO # 0.6 10*3/uL (0.1-1.0); MONO % 10.6 % (3.0-9.0); NEUT # 3.5 10*3/uL (2.3-7.9); NEUT % 63.6 % (47.0-73.0); PLATELET COUNT AUTOMATED 218 10*3/uL (130-400); RED BLOOD COUNT 3.61 10*6/uL (4.50-5.90); RED CELL DISTRI WIDTH 12.9 % (0-14.5); WHITE BLOOD COUNT 5.5 10*3/uL (4.8-10.8)
[2020-06-03 11:38] LABS: ALBUMIN 4.5 gm/dl (3.1-4.5); ALKALINE PHOSPHATASE 60 U/L (45-117); BUN 19 mg/dl (7-24); CHLORIDE 103 mmol/L (98-107); POTASSIUM 4.2 mmol/L (3.5-5.1); SGOT/AST 14 IU/L (3-35); SGPT/ALT 20 U/L (12-78); SODIUM 138 mmol/L (136-145); T3 UPTAKE 38 % (31-39); THYROXINE (T4) TOTAL 7.2 ug/dl (4.5-12.1); TOTAL PROTEIN 7.1 gm/dL (6.4-8.2)
[2020-06-04 09:10] LABS: FOLLICLE STIMULATING HORMONE 5.4 mIU/mL (1.5-12.4); PROGESTERONE 0.1 ng/mL (0.0-0.5); PROLACTIN 10.5 ng/mL (4.0-15.2)
== END | disposition home or self-care (01) ==
LOC: LAB 10:44
PROVIDERS: ATTEND Urology
DX: R53.82 Chronic fatigue, unspecified (principal)

== ENCOUNTER → 2020-08-16 | Outpatient (CLI) | payer MEDICARE ==
[2020-08-16 09:46] LABS: BASO # 0.1 10*3/uL (0.0-0.1); EOS # 0.1 10*3/uL (0.0-0.4); EOS % 2.4 % (1.0-4.0); HEMATOCRIT 34.8 % (42.0-52.0); LYMPH # 1.1 10*3/uL (1.3-4.4); LYMPH % 22.2 % (27.0-41.0); MEAN CELL VOLUME 107.1 fl (80.0-94.0); MEAN CORPUSCULAR HGB 35.1 pg (27.0-31.0); MEAN CORPUSCULAR HGB CONC 32.8 g/dl (33.0-37.0); MONO # 0.6 10*3/uL (0.1-1.0); MONO % 11.2 % (3.0-9.0); NEUT # 3.1 10*3/uL (2.3-7.9); NEUT % 62.8 % (47.0-73.0); PLATELET COUNT AUTOMATED 180 10*3/uL (130-400); RED BLOOD COUNT 3.25 10*6/uL (4.50-5.90); RED CELL DISTRI WIDTH 13.2 % (0-14.5); RETICULOCYTE % 1.82 % (0.50-2.50)
[2020-08-16 10:16] LABS: IRON 88 ug/dL (65-175); TOTAL IRON BINDING CAPACITY 234 ug/dl (250-450)
[2020-08-16 11:40] LABS: FERRITIN 176.4 ng/mL (22.0-322.0)
== END | disposition home or self-care (01) ==
LOC: LAB 09:15
PROVIDERS: ATTEND Family Medicine
DX: D53.0 Protein deficiency anemia (principal)

== ENCOUNTER 2020-08-25 10:55 | Emergency (ER) | payer MEDICARE ==
[2020-08-25 11:01] VITALS: BP 118/68
== END 2020-08-25 13:00 | disposition home or self-care (01) ==
LOC: ED 10:55
DX: S01.01XA Laceration without foreign body of scalp, initial encounter (principal); Z90.49 Acquired absence of other specified parts of digestive tract; Z98.890 Other specified postprocedural states; Z79.82 Long term (current) use of aspirin; Z79.01 Long term (current) use of anticoagulants; Z79.899 Other long term (current) drug therapy; Z88.7 Allergy status to serum and vaccine; W01.198A Fall on same level from slipping, tripping and stumbling with subsequent striking against other object, initial encounter; Y93.01 Activity, walking, marching and hiking; Y92.59 Other trade areas as the place of occurrence of the external cause; Y99.9 Unspecified external cause status

== ENCOUNTER 2020-09-01 09:16 | Emergency (ER) | payer MEDICARE ==
[~2020-09-01] VITALS: Ht 177.8 cm; Wt 88.5 kg
== END 2020-09-01 09:47 | disposition home or self-care (01) ==
LOC: ED 09:16
DX: S01.01XD Laceration without foreign body of scalp, subsequent encounter (principal); Z90.49 Acquired absence of other specified parts of digestive tract; Z95.1 Presence of aortocoronary bypass graft; Z98.890 Other specified postprocedural states; Z79.82 Long term (current) use of aspirin; Z79.899 Other long term (current) drug therapy; Z88.7 Allergy status to serum and vaccine; W18.30XD Fall on same level, unspecified, subsequent encounter

== ENCOUNTER → 2020-09-06 | Outpatient (CLI) | payer MEDICARE | END | disposition home or self-care (01) | LOC: LAB 09:45 | PROVIDERS: ATTEND Urology | DX: D40.0 Neoplasm of uncertain behavior of prostate (principal) ==

== ENCOUNTER 2020-10-06 11:34 | Emergency (ER) | payer MEDICARE ==
[~2020-10-06] VITALS: Wt 88.9 kg
[2020-10-06 11:53] LABS: HEMATOCRIT 37.2 % (42.0-52.0); MEAN CELL VOLUME 109.1 fl (80.0-94.0); MEAN CORPUSCULAR HGB 35.8 pg (27.0-31.0); MEAN CORPUSCULAR HGB CONC 32.8 g/dl (33.0-37.0); MEAN PLATELET VOLUME 9.5 fl (9.6-12.3); PLATELET COUNT AUTOMATED 176 10*3/uL (130-400); RED BLOOD COUNT 3.41 10*6/uL (4.50-5.90); RED CELL DISTRI WIDTH 13.5 % (0-14.5); WHITE BLOOD COUNT 5.5 10*3/uL (4.8-10.8)
[2020-10-06 12:04] LABS: ACT PARTIAL THROMBO TIME 28.2 SECONDS (20.0-32.1); INTERNATIONAL NORM RATIO 1.1 (2.0-3.5)
[2020-10-06 12:10] LABS: ALBUMIN 4.3 gm/dl (3.1-4.5); ALKALINE PHOSPHATASE 47 U/L (45-117); BASOPHILS 2 % (0-1); BUN 17 mg/dl (7-24); CHLORIDE 104 mmol/L (98-107); CREATININE 1.36 mg/dL (0.70-1.30); PLATELET SUFFICIENCY NORMAL (NORMAL); POTASSIUM 4.4 mmol/L (3.5-5.1); SGOT/AST 9 IU/L (3-35); SGPT/ALT 20 U/L (12-78); SODIUM 138 mmol/L (136-145); TOTAL CELLS COUNTED 100 #CELLS
[2020-10-06 12:11] LABS: TROPONIN I 0.173 ng/ml (<0.045)
[2020-10-06 17:43] VITALS: BP 137/76
== END 2020-10-06 17:44 | disposition short-term general hospital (02) ==
LOC: ED 11:34
PROVIDERS: Emergency Medicine
DX: R27.0 Ataxia, unspecified (principal); R07.89 Other chest pain; R77.8 Other specified abnormalities of plasma proteins; R20.0 Anesthesia of skin; R53.1 Weakness; I25.10 Atherosclerotic heart disease of native coronary artery without angina pectoris; I25.2 Old myocardial infarction; E78.5 Hyperlipidemia, unspecified; K21.9 Gastro-esophageal reflux disease without esophagitis; I50.9 Heart failure, unspecified; Z88.8 Allergy status to other drugs, medicaments and biological substances; Z79.899 Other long term (current) drug therapy; Z79.82 Long term (current) use of aspirin; Z90.49 Acquired absence of other specified parts of digestive tract; Z98.890 Other specified postprocedural states; Z95.1 Presence of aortocoronary bypass graft; Z95.0 Presence of cardiac pacemaker

== ENCOUNTER → 2020-10-25 | Outpatient (CLI) | payer MEDICARE ==
[2020-10-25 11:33] LABS: HEMATOCRIT 35.3 % (42.0-52.0); MEAN CELL VOLUME 109.6 fl (80.0-94.0); MEAN CORPUSCULAR HGB CONC 32.9 g/dl (33.0-37.0); PLATELET COUNT AUTOMATED 160 10*3/uL (130-400); RED BLOOD COUNT 3.22 10*6/uL (4.50-5.90); RED CELL DISTRI WIDTH 13.1 % (0-14.5); WHITE BLOOD COUNT 5.3 10*3/uL (4.8-10.8)
[2020-10-25 11:48] LABS: BASOPHILS 1 % (0-1); TOTAL CELLS COUNTED 100 #CELLS
[2020-10-25 11:49] LABS: PLATELET SUFFICIENCY NORMAL (NORMAL)
[2020-10-25 12:02] LABS: ALBUMIN 4.6 gm/dl (3.1-4.5); CHLORIDE 105 mmol/L (98-107); POTASSIUM 4.2 mmol/L (3.5-5.1); SODIUM 137 mmol/L (136-145)
[2020-10-25 12:10] LABS: ALKALINE PHOSPHATASE 32 U/L (45-117); BUN 14 mg/dl (7-24); CREATININE 1.32 mg/dL (0.70-1.30); SGOT/AST 8 IU/L (3-35); SGPT/ALT 15 U/L (12-78); TOTAL PROTEIN 6.6 gm/dL (6.4-8.2)
== END | disposition home or self-care (01) ==
LOC: LAB 11:16
PROVIDERS: ATTEND Urology
DX: Z12.5 Encounter for screening for malignant neoplasm of prostate (principal); I10 Essential (primary) hypertension; R53.83 Other fatigue; D40.0 Neoplasm of uncertain behavior of prostate

== ENCOUNTER 2021-06-10 13:48 | Inpatient (IN) | payer MEDICARE ==
[~2021-06-10] VITALS: Ht 177.8 cm; Wt 87.7 kg
[~2021-06-10 13:48] MED LIST changes: +VITAMIN D350 MCG PO; -VITAMIN D5000 UNIT PO
[2021-06-10 14:37] VITALS: BP 95/44
[2021-06-10 16:01] LABS: BASO % 0.2 % (0.0-1.0); HEMATOCRIT 34.8 % (42.0-52.0); LYMPH # 0.7 10*3/uL (1.3-4.4); LYMPH % 4.9 % (27.0-41.0); MEAN CELL VOLUME 107.1 fl (80.0-94.0); MEAN CORPUSCULAR HGB CONC 33.6 g/dl (33.0-37.0); MEAN PLATELET VOLUME 9.6 fl (9.6-12.3); MONO # 1.1 10*3/uL (0.1-1.0); MONO % 7.3 % (3.0-9.0); NEUT % 86.7 % (47.0-73.0); PLATELET COUNT AUTOMATED 175 10*3/uL (130-400); RED BLOOD COUNT 3.25 10*6/uL (4.50-5.90); RED CELL DISTRI WIDTH 13.2 % (0-14.5)
[2021-06-10 16:19] LABS: ALBUMIN 4.4 gm/dl (3.1-4.5); CREATININE 1.62 mg/dL (0.70-1.30); POTASSIUM 4.1 mmol/L (3.5-5.1); TOTAL PROTEIN 6.9 gm/dL (6.4-8.2)
[2021-06-10 16:27] LABS: TROPONIN I 0.274 ng/ml (<0.045)
[2021-06-10] MEDS ORDERED: ESCITALOPRAM OX10 MG PO (19:56)
[2021-06-10] MEDS ORDERED: FUROSEMIDE40 MG PO (19:57)
[2021-06-10] MEDS ORDERED: Imdur SA60 MG PO (19:57)
[2021-06-10] MEDS ORDERED: POTASSIUM CHLO20 ME4 PO (19:58)
[2021-06-10 20:18] VITALS: BP 107/42
[2021-06-10 20:59] LABS: BILIRUBIN Negative (Negative); BLOOD 1+ (Negative); CLARITY Clear (Clear); COLOR Dark Yellow (Yellow); GLUCOSE Negative (Negative); KETONE Trace (Negative); LEUKO ESTERASE 1+ (Negative); NITRITE Negative (Negative); PH 5.5 (4.5-8.0)
[2021-06-10 21:14] LABS: BACTERIA 1+; EPITHELIAL CELLS 0-2; MUCOUS TRACE; RBC 41-50 rbc/hpf (0-2)
[2021-06-10 21:25] VITALS: BP 96/44
[2021-06-10] MEDS ORDERED: CLARITIN10 MG PO (23:02)
[2021-06-10] MEDS ORDERED: RANOLAZINE ER500 MG PO (23:07)
[2021-06-11] VITALS: BP 98/45
[2021-06-11 06:16] LABS: ALBUMIN 3.7 gm/dl (3.1-4.5); CREATININE 2.1 mg/dL (0.70-1.30); TOTAL PROTEIN 6.3 gm/dL (6.4-8.2)
[2021-06-11 06:23] LABS: FREE T4 1.09 ng/dl (0.76-1.46); THYROID STIM HORMONE (HS) 0.881 uIU/ml (0.358-4.75)
[2021-06-11 06:25] LABS: HEMATOCRIT 32.3 % (42.0-52.0); MEAN CELL VOLUME 106.3 fl (80.0-94.0); MEAN CORPUSCULAR HGB 35.5 pg (27.0-31.0); MEAN CORPUSCULAR HGB CONC 33.4 g/dl (33.0-37.0); MEAN PLATELET VOLUME 10.5 fl (9.6-12.3); PLATELET COUNT AUTOMATED 158 10*3/uL (130-400); RED BLOOD COUNT 3.04 10*6/uL (4.50-5.90); RED CELL DISTRI WIDTH 13.6 % (0-14.5)
[2021-06-11 06:30] VITALS: BP 118/63
[2021-06-11 07:00] VITALS: BP 130/52
[2021-06-11 07:32] LABS: BASOPHILS 1 % (0-1); PLATELET SUFFICIENCY NORMAL (NORMAL); POLYCHROMASIA SLIGHT; TOTAL CELLS COUNTED 100 #CELLS
[2021-06-11 12:00] VITALS: BP 101/47
[2021-06-11 16:00] VITALS: BP 104/50
[2021-06-11 20:00] VITALS: BP 118/54
[2021-06-12] VITALS: BP 140/59
[2021-06-12 06:20] LABS: HEMATOCRIT 28.3 % (42.0-52.0); MEAN CELL VOLUME 104.4 fl (80.0-94.0); MEAN CORPUSCULAR HGB 35.8 pg (27.0-31.0); MEAN CORPUSCULAR HGB CONC 34.3 g/dl (33.0-37.0); MEAN PLATELET VOLUME 10.3 fl (9.6-12.3); PLATELET COUNT AUTOMATED 154 10*3/uL (130-400); RED BLOOD COUNT 2.71 10*6/uL (4.50-5.90); RED CELL DISTRI WIDTH 13.2 % (0-14.5); WHITE BLOOD COUNT 12.2 10*3/uL (4.8-10.8)
[2021-06-12 06:45] LABS: CREATININE 1.96 mg/dL (0.70-1.30); POTASSIUM 3.8 mmol/L (3.5-5.1)
[2021-06-12 07:20] LABS: PLATELET SUFFICIENCY NORMAL (NORMAL); POLYCHROMASIA SLIGHT; TOTAL CELLS COUNTED 100 #CELLS; TOXIC GRANULATION SLIGHT
[2021-06-12 08:00] VITALS: BP 124/60
[2021-06-12 12:00] VITALS: BP 121/56
[2021-06-12 16:00] VITALS: BP 124/68
[2021-06-12 18:00] VITALS: BP 124/68
[2021-06-12 20:00] VITALS: BP 117/57
[2021-06-13] VITALS: BP 110/54
[2021-06-13 06:28] LABS: BASO % 0.3 % (0.0-1.0); EOS # 0.2 10*3/uL (0.0-0.4); HEMATOCRIT 27.6 % (42.0-52.0); LYMPH # 0.9 10*3/uL (1.3-4.4); LYMPH % 7.8 % (27.0-41.0); MEAN CELL VOLUME 104.9 fl (80.0-94.0); MEAN CORPUSCULAR HGB 35.7 pg (27.0-31.0); MEAN CORPUSCULAR HGB CONC 34.1 g/dl (33.0-37.0); MONO # 0.6 10*3/uL (0.1-1.0); MONO % 5.1 % (3.0-9.0); NEUT # 9.4 10*3/uL (2.3-7.9); NEUT % 84.1 % (47.0-73.0); PLATELET COUNT AUTOMATED 153 10*3/uL (130-400); RED BLOOD COUNT 2.63 10*6/uL (4.50-5.90); RED CELL DISTRI WIDTH 13.2 % (0-14.5); WHITE BLOOD COUNT 11.2 10*3/uL (4.8-10.8)
[2021-06-13 06:45] LABS: CREATININE 1.53 mg/dL (0.70-1.30); POTASSIUM 3.5 mmol/L (3.5-5.1)
[2021-06-13 08:00] VITALS: BP 110/62
[2021-06-13 12:00] VITALS: BP 107/51
[2021-06-13 16:00] VITALS: BP 116/47; BP 123/58
[2021-06-13 20:00] VITALS: BP 119/59
[2021-06-14] VITALS: BP 119/52
[2021-06-14 07:04] LABS: BASO # 0.1 10*3/uL (0.0-0.1); BASO % 0.6 % (0.0-1.0); EOS # 0.3 10*3/uL (0.0-0.4); EOS % 3.8 % (1.0-4.0); HEMATOCRIT 28.4 % (42.0-52.0); LYMPH % 12.1 % (27.0-41.0); MEAN CELL VOLUME 104.8 fl (80.0-94.0); MEAN CORPUSCULAR HGB 35.4 pg (27.0-31.0); MEAN CORPUSCULAR HGB CONC 33.8 g/dl (33.0-37.0); MEAN PLATELET VOLUME 10.7 fl (9.6-12.3); MONO # 0.7 10*3/uL (0.1-1.0); MONO % 9.2 % (3.0-9.0); NEUT # 5.7 10*3/uL (2.3-7.9); NEUT % 71.9 % (47.0-73.0); PLATELET COUNT AUTOMATED 175 10*3/uL (130-400); RED BLOOD COUNT 2.71 10*6/uL (4.50-5.90); RED CELL DISTRI WIDTH 13.6 % (0-14.5)
[2021-06-14 07:28] LABS: BUN 39 mg/dl (7-24); CHLORIDE 107 mmol/L (98-107); CREATININE 1.24 mg/dL (0.70-1.30); POTASSIUM 3.8 mmol/L (3.5-5.1); SODIUM 140 mmol/L (136-145)
[2021-06-14 08:00] VITALS: BP 112/64
[2021-06-14 12:00] VITALS: BP 114/62
[2021-06-14] MEDS ORDERED: DOXYCYCLINE HY100 M3 PO (12:56)
[2021-06-14] MEDS ORDERED: CLOPIDOGREL75 MG PO ×2 (12:56)
[2021-06-14] MEDS ORDERED: XARELTO20 M1 PO (12:58)
== END 2021-06-14 15:59 | disposition home or self-care (01) | DRG 871 ==
LOC: ED 13:48 → 4E 16:50 → EDHOLD 16:50 → 4E 19:48
PROVIDERS: Family Medicine; Internal Medicine; ADMIT Internal Medicine; ATTEND Internal Medicine
DX: A41.9 Sepsis, unspecified organism (principal); N17.0 Acute kidney failure with tubular necrosis; J96.01 Acute respiratory failure with hypoxia; I21.9 Acute myocardial infarction, unspecified; J69.0 Pneumonitis due to inhalation of food and vomit; G61.0 Guillain-Barre syndrome; Z20.822 Contact with and (suspected) exposure to COVID-19; D53.9 Nutritional anemia, unspecified; R73.9 Hyperglycemia, unspecified; I25.10 Atherosclerotic heart disease of native coronary artery without angina pectoris; E78.5 Hyperlipidemia, unspecified; I48.0 Paroxysmal atrial fibrillation; N18.9 Chronic kidney disease, unspecified; K21.9 Gastro-esophageal reflux disease without esophagitis; N40.0 Benign prostatic hyperplasia without lower urinary tract symptoms; I50.9 Heart failure, unspecified; I34.0 Nonrheumatic mitral (valve) insufficiency; Z79.01 Long term (current) use of anticoagulants; Z88.7 Allergy status to serum and vaccine; Z90.49 Acquired absence of other specified parts of digestive tract; Z95.5 Presence of coronary angioplasty implant and graft; Z95.1 Presence of aortocoronary bypass graft; Z79.82 Long term (current) use of aspirin; Z79.899 Other long term (current) drug therapy

== ENCOUNTER → 2021-07-06 | Outpatient (CLI) | payer MEDICARE ==
[~2021-07-06] MED LIST changes: +CLOPIDOGREL75 MG PO; +DOXYCYCLINE HY100 M3 PO; +ESCITALOPRAM OX10 MG PO; +FUROSEMIDE40 MG PO; +Imdur SA60 MG PO; +POTASSIUM CHLO20 ME4 PO; +RANOLAZINE ER500 MG PO; +XARELTO20 M1 PO
== END | disposition home or self-care (01) ==
LOC: RAD 12:16
PROVIDERS: ATTEND Nurse Practitioner Family
DX: J18.9 Pneumonia, unspecified organism (principal); G61.0 Guillain-Barre syndrome; I25.10 Atherosclerotic heart disease of native coronary artery without angina pectoris

== ENCOUNTER → 2021-08-05 | Outpatient (CLI) | payer MEDICARE | END | disposition home or self-care (01) | LOC: RAD 10:13 | PROVIDERS: ATTEND Nurse Practitioner Family | DX: R05.9 Cough, unspecified (principal) ==

== ENCOUNTER 2021-09-24 21:53 | Emergency (ER) | payer MEDICARE ==
[2021-09-24 22:54] LABS: BASO # 0.1 10*3/uL (0.0-0.1); BASO % 0.6 % (0.0-1.0); EOS # 0.2 10*3/uL (0.0-0.4); EOS % 1.9 % (1.0-4.0); HEMATOCRIT 31.2 % (42.0-52.0); LYMPH # 0.8 10*3/uL (1.3-4.4); LYMPH % 10.1 % (27.0-41.0); MEAN CELL VOLUME 106.5 fl (80.0-94.0); MEAN CORPUSCULAR HGB 35.8 pg (27.0-31.0); MEAN CORPUSCULAR HGB CONC 33.7 g/dl (33.0-37.0); MEAN PLATELET VOLUME 9.8 fl (9.6-12.3); MONO # 0.8 10*3/uL (0.1-1.0); MONO % 9.7 % (3.0-9.0); NEUT # 6.2 10*3/uL (2.3-7.9); NEUT % 77.3 % (47.0-73.0); PLATELET COUNT AUTOMATED 182 10*3/uL (130-400); RED BLOOD COUNT 2.93 10*6/uL (4.50-5.90); RED CELL DISTRI WIDTH 12.6 % (0-14.5)
[2021-09-24 23:12] LABS: ALKALINE PHOSPHATASE 50 U/L (45-117); BUN 19 mg/dl (7-24); CHLORIDE 105 mmol/L (98-107); CREATININE 1.39 mg/dL (0.70-1.30); POTASSIUM 3.7 mmol/L (3.5-5.1); SGOT/AST 17 IU/L (3-35); SGPT/ALT 17 U/L (12-78); SODIUM 137 mmol/L (136-145); TOTAL PROTEIN 6.4 gm/dL (6.4-8.2)
[2021-09-24 23:16] LABS: INTERNATIONAL NORM RATIO 1.1 (2.0-3.5)
[2021-09-25 03:40] VITALS: BP 139/78
== END 2021-09-25 04:03 | disposition home or self-care (01) ==
LOC: ED 21:53
PROVIDERS: Emergency Medicine
DX: R06.02 Shortness of breath (principal); K21.9 Gastro-esophageal reflux disease without esophagitis; G43.909 Migraine, unspecified, not intractable, without status migrainosus; I25.10 Atherosclerotic heart disease of native coronary artery without angina pectoris; I50.9 Heart failure, unspecified; Z88.7 Allergy status to serum and vaccine; Z79.899 Other long term (current) drug therapy; Z95.1 Presence of aortocoronary bypass graft; Z90.49 Acquired absence of other specified parts of digestive tract; Z98.890 Other specified postprocedural states

== ENCOUNTER 2021-10-14 16:33 | Emergency (ER) | payer MEDICARE ==
[~2021-10-14] VITALS: Ht 175.2 cm; Wt 87.1 kg
[2021-10-14 16:41] VITALS: BP 135/64
== END 2021-10-14 18:06 | disposition short-term general hospital (02) ==
LOC: ED 16:33
DX: S68.621A Partial traumatic transphalangeal amputation of left index finger, initial encounter (principal); Z88.7 Allergy status to serum and vaccine; Z79.899 Other long term (current) drug therapy; Z90.49 Acquired absence of other specified parts of digestive tract; Z98.890 Other specified postprocedural states; Z95.1 Presence of aortocoronary bypass graft; W45.8XXA Other foreign body or object entering through skin, initial encounter; Y93.89 Activity, other specified; Y92.89 Other specified places as the place of occurrence of the external cause; Y99.8 Other external cause status

== ENCOUNTER 2022-02-25 20:59 | Emergency (ER) | payer MEDICARE ==
[~2022-02-25] VITALS: Ht 177.8 cm; Wt 86.2 kg
[2022-02-25 23:57] LABS: HEMATOCRIT 31.1 % (42.0-52.0); MEAN CELL VOLUME 109.9 fl (80.0-94.0); MEAN CORPUSCULAR HGB 36.4 pg (27.0-31.0); MEAN CORPUSCULAR HGB CONC 33.1 g/dl (33.0-37.0); MEAN PLATELET VOLUME 9.7 fl (9.6-12.3); PLATELET COUNT AUTOMATED 172 10*3/uL (130-400); RED BLOOD COUNT 2.83 10*6/uL (4.50-5.90); RED CELL DISTRI WIDTH 13.8 % (0-14.5); WHITE BLOOD COUNT 3.1 10*3/uL (4.8-10.8)
[2022-02-25 23:59] LABS: MANUAL DIFF REFLEX YES
[2022-02-26 00:13] LABS: CREATININE 1.67 mg/dL (0.70-1.30); POTASSIUM 3.8 mmol/L (3.5-5.1); TOTAL PROTEIN 6.7 gm/dL (6.4-8.2)
[2022-02-26 00:22] LABS: PLATELET SUFFICIENCY NORMAL (NORMAL); TOTAL CELLS COUNTED 100 #CELLS
[2022-02-26 01:39] LABS: BILIRUBIN Negative (Negative); BLOOD Negative (Negative); CLARITY Clear (Clear); COLOR Dark Yellow (Yellow); GLUCOSE Negative (Negative); KETONE Negative (Negative); LEUKO ESTERASE Negative (Negative); NITRITE Negative (Negative)
[2022-02-26] MEDS ORDERED: LAGEVRIO PO (01:47)
[2022-02-26 01:49] LABS: RBC 0-2 rbc/hpf (0-2); WBC 0-2 wbc/hpf (0-5)
[2022-02-26 02:39] VITALS: BP 147/68
[2022-02-27] MEDS ORDERED: ZITHROMAX250 MG PO (16:52)
[2022-02-27] MEDS ORDERED: PREDNISONE20 M1 PO (16:52)
== END 2022-02-26 03:36 | disposition home or self-care (01) ==
LOC: ED 20:59
PROVIDERS: Emergency Medicine
DX: U07.1 COVID-19 (principal); B34.9 Viral infection, unspecified; Z88.7 Allergy status to serum and vaccine; Z79.899 Other long term (current) drug therapy; Z90.49 Acquired absence of other specified parts of digestive tract; Z98.890 Other specified postprocedural states

== ENCOUNTER 2022-02-27 13:09 | Emergency (ER) | payer MEDICARE ==
[~2022-02-27] VITALS: Ht 177.8 cm; Wt 86.2 kg
[~2022-02-27 13:09] MED LIST changes: +LAGEVRIO PO
[2022-02-27 13:26] VITALS: BP 119/52
[2022-02-27 14:21] LABS: HEMATOCRIT 31.6 % (42.0-52.0); MEAN CELL VOLUME 107.8 fl (80.0-94.0); MEAN CORPUSCULAR HGB 35.5 pg (27.0-31.0); MEAN CORPUSCULAR HGB CONC 32.9 g/dl (33.0-37.0); MEAN PLATELET VOLUME 9.5 fl (9.6-12.3); PLATELET COUNT AUTOMATED 144 10*3/uL (130-400); RED BLOOD COUNT 2.93 10*6/uL (4.50-5.90); RED CELL DISTRI WIDTH 13.6 % (0-14.5); WHITE BLOOD COUNT 6.1 10*3/uL (4.8-10.8)
[2022-02-27 14:28] LABS: MANUAL DIFF REFLEX YES
[2022-02-27 14:32] LABS: CREATININE 1.74 mg/dL (0.70-1.30); POTASSIUM 3.6 mmol/L (3.5-5.1)
[2022-02-27 14:44] LABS: ATYPICAL LYMPHS 1 % (0-0); PLATELET SUFFICIENCY NORMAL (NORMAL); POLYCHROMASIA SLIGHT; TOTAL CELLS COUNTED 100 #CELLS
[2022-02-27 14:45] LABS: BURR CELLS FEW; STOMATOCYTE FEW
[2022-02-27] MEDS ORDERED: ZITHROMAX250 MG PO (16:52)
[2022-02-27] MEDS ORDERED: PREDNISONE20 M1 PO (16:52)
== END 2022-02-27 15:25 | disposition home or self-care (01) ==
LOC: ED 13:09
PROVIDERS: Emergency Medicine
DX: Z20.822 Contact with and (suspected) exposure to COVID-19 (principal); Z95.5 Presence of coronary angioplasty implant and graft; Z79.899 Other long term (current) drug therapy; Z90.49 Acquired absence of other specified parts of digestive tract; Z98.890 Other specified postprocedural states

== ENCOUNTER → 2022-03-08 | Outpatient (CLI) | payer MEDICARE ==
[~2022-03-08] MED LIST changes: +PREDNISONE20 M1 PO; +ZITHROMAX250 MG PO
== END | disposition home or self-care (01) ==
LOC: RAD 15:14
PROVIDERS: ATTEND Nurse Practitioner Family
DX: U07.1 COVID-19 (principal); R05.1 Acute cough

== ENCOUNTER → 2022-07-19 | Outpatient (CLI) | payer MEDICARE | END | disposition home or self-care (01) | LOC: US 14:00 | PROVIDERS: ATTEND Internal Medicine Nephrology | DX: N18.31 Chronic kidney disease, stage 3a (principal); N28.1 Cyst of kidney, acquired; N32.89 Other specified disorders of bladder ==

== ENCOUNTER → 2022-10-04 | Outpatient (CLI) | payer MEDICARE | END | disposition home or self-care (01) | LOC: ORTHO 00:35 | PROVIDERS: ATTEND Orthopaedic Surgery | DX: M19.022 Primary osteoarthritis, left elbow (principal); M79.89 Other specified soft tissue disorders; M70.22 Olecranon bursitis, left elbow ==